=== PATIENT | female | born 2000 | race Caucasian/White ===

== ENCOUNTER 2023-06-27 09:42 | Outpatient (REF) | payer MEDICAID, SELFPAY ==
[2023-06-28 05:37] LABS: CT PCR NOT DETECTED (Not Detect.); NG PCR NOT DETECTED (Not Detect.)
[2023-06-28 10:20] LABS: BV Int Neg Control Negative (Negative); BV Int Pos Control Positive (Positive)
== END 2023-06-27 09:43 | disposition home or self-care (01) ==
LOC: HO.LNP 09:42
PROVIDERS: Visit Provider Advanced Practice Midwife
DX: Z01.419 Encounter for gynecological examination (general) (routine) without abnormal findings (principal); Z11.3 Encounter for screening for infections with a predominantly sexual mode of transmission; Z97.5 Presence of (intrauterine) contraceptive device
CPT/HCPCS: 0353U; 87480; 87510; 87660; 88142; 99385

== ENCOUNTER 2023-06-27 09:42 | Outpatient (AMB) | payer MEDICAID, SELFPAY ==
[2023-06-27 09:49] VITALS: BP 106/70; BMI 28.5
--- NOTE | 2023-06-27 09:49 | A.OFFVIS_ITS ---
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 She is 23 years old since February. She does believe that she has had several Pap smears in her lifetime. She used to get solar applications development engineer care from a doctor in [place] she has her 2nd Kyleena. She had this 1 inserted last year she said that none of the other methods were good for her because she knew she had a busy enough life that she would not remember and she chose this and she was very clear about why she wanted it. She is trying to practice safer sex with her partner but she has in a stable relationship and has no particular concerns she says she does have issues with her hands going numb and pains down her legs, she says she has been worked up by Rheumatology and Neurology and was told that the pain in her legs were going pains but she has not growing anymore and she still gets them she tries to eat well and cooks all her meals at home and is working on getting enough calcium and vitamin-D in her diet. Her only complaint that she mentioned at the end of the visit was that sometimes even when she is in the mood to have sex she feels dry and has a partn er that is very patient and they communicate. She is interested in getting full STD tests because she always does every year. 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 Despite her hands going numb and giving her difficulty and her pain running down her leg she works out and goes to the gym and does several different kinds of exercise and plays ultimate Frisbee. PFSH Surgical History Hx of wisdom tooth extraction Family History (Updated 06/27/23 @ 09:53 by NICOLE Abernathy) Family/Other Breast cancer Social History (Updated 06/27/23 @ 09:52 by NICOLE Abernathy) Alcohol intake: current Alcohol intake frequency: a few times a month Female Reproductive History Menstrual Age of Menarche: 17 Duration of menses: other control method: progestin IUCD Total pregnancies: 0 Physical Exam Vital Signs: Last Vital Signs BP 106/70 06/27/23 09:49 BMI result Body Mass Index 28.5 Const General: healthy appearing, comfortable, no acute distress, well developed and alert Nutritional Appearance: average body habitus Orientation/consciousness: patient oriented x3 Limitations: no limitations HEENT Head: Yes normocephalic Neck Neck: Yes normal visual inspection Chest Chest palpation & inspection: normal inspection of the chest Breast/axilla inspection: normal inspection of the breasts and normal inspection of the axillae Breast/axilla palpation: normal palpation of the breasts and normal palpation of the axillae Resp Effort & Inspection: normal respiratory effort GI Inspection: Yes normal to inspection, No Abdominal wall edema and No distended Palpation (GI): Soft to palpation and nontender General: Yes bladder normal to palpation External Female Exam: normal external appearance and normal appearance of the urethra Speculum Exam - Vagina: normal appearance of the vagina, normal palpation and normal vaginal discharge Speculum Exam - Cervix: normal appearance of the cervix, normal palpation and nontender Bimanual exam- vagina & uterus: normal bimanual exam, normal palpation, uterine size normal, bladder normal to palpation, consistency normal, normal palpation, uterine mobility normal, uterine shape normal, No Cervical tenderness present, non-tender and no cervical motion tenderness Bimanual Exam- Adnexa, other: normal adnexae, no masses, normal and No adnexal tenderness Neuro General: patient oriented x3 Assessment & Plan Assessment & Plan (1) Encounter for screening examination for sexually transmitted disease: Code(s): Z11.3 - Encounter for screening for infections with a predominantly sexual mode of transmission (2) Cervical cancer screening: Code(s): Z12.4 - Encounter for screening for malignant neoplasm of cervix (3) Presence of 13.5 mg levonorgestrel-releasing intrauterine device (IUD): Comment: Please note this is her 2nd it was replaced for her last year in [place]. We do not actually know the dosage of her particular Kyleena. Code(s): Z97.5 - Presence of (intrauterine) contraceptive device (4) Well woman exam with routine gynecological exam: Code(s): Z01.419 - Encounter for gynecological examination (general) (routine) without abnormal findings Plan -----Discussed in this visit the following: healthy balanced diet, regular and consistent exercise, getting recommended health screens, doing the best she can for her particular health concerns, kegel exercises, pap smear screening and followup recommendations, mammography screening and SBE, normal changes in cycles in her life stage--- . Discussed the screening policies in the [place] for cervical cancer in the last 20+ years which start Pap smears at age 21 and discussed the algorithm. I did her Pap smear today it is possible a deep dive in 2 her previous records may disclosed that she has had Pap smears done but I am following asccp recommendations today. Testing also done for STIs and offered for the blood work and she did accept those. She does not believe she is on our portal and I requested she be given information about that so she can get on the portal if she is not on the portal she can call for results in 2-3 days and we will send her a letter about the Pap smear I told her next Pap if this was normal would be in 3 years but that she still should return for solar applications development engineer annual exams and I did show her her cervix with the Kyleena string. I discussed normal bacterial scott and that just because Gardnerella or Supriya show up in the testing does not mean it needs to be treated but I recommend water-based lubricants for her dryness problem it may partially be related to the hormonal side effects of the Kyleena but this would be true for any hormonal based method of control. She was going to check her own wrist card to let me know the particular dosage of the Kyleena she has in but she did not have it with her. It is not of importance at this visit but she may bring the card or the dosage information to her next visit for information purposes. Labs ordered and RTC 1 year. Orders: Orders HIV Ab/Ag Today Z01.419 - Encounter for gynecological examination (general) (routine) without abnormal findings, Z11.3 - Encounter for screening for infections with a predominantly sexual mode of transmission, Z12.4 - Encounter for screening for malignant neoplasm of cervix, Z97.5 - Presence of (intrauterine) contraceptive device Hepatitis B Surface Antigen Today Z01.419 - Encounter for gynecological examination (general) (routine) without abnormal findings, Z11.3 - Encounter for screening for infections with a predominantly sexual mode of transmission, Z12.4 - Encounter for screening for malignant neoplasm of cervix, Z97.5 - Presence of (intrauterine) contraceptive device Hepatitis C Antibody Today Z419 - Encounter for gynecological examination (g eneral) (routine) without abnormal findings, Z11.3 - Encounter for screening for infections with a predominantly sexual mode of transmission, Z12.4 - Encounter for screening for malignant neoplasm of cervix, Z97.5 - Presence of (intrauterine) contraceptive device Syphilis Screen Today Z419 - Encounter for gynecological examination (general) (routine) without abnormal findings, Z11.3 - Encounter for screening for infections with a predominantly sexual mode of transmission, Z12.4 - Encounter for screening for malignant neoplasm of cervix, Z97.5 - Presence of (intrauterine) contraceptive device Coding Level of Care Code New Pt Prev Care [id number] Diagnoses Encounter for screening examination for sexually transmitted disease Z11.3 Cervical cancer screening Z12.4 Presence of 13.5 mg levonorgestrel-releasing intrauterine device (IUD) Z97.5 Well woman exam with routine gynecological exam Z
== END 2023-06-27 10:31 | disposition home or self-care (01) ==
PROVIDERS: Visit Provider Advanced Practice Midwife
DX: Z01.419 Encounter for gynecological examination (general) (routine) without abnormal findings (principal); Z97.5 Presence of (intrauterine) contraceptive device
CPT/HCPCS: 99385

== ENCOUNTER 2023-06-27 10:35 | Outpatient (REF) | payer MEDICAID, SELFPAY ==
[2023-06-28 03:47] LABS: Syphilis Screen Nonreactive (Nonreactive)
[2023-06-28 04:09] LABS: HBsAGNum1 0.41 S/CO (0.00-0.99); HIV AB/AG Nonreactive (Nonreactive); HIV Num 1 0.05 S/CO (0.00-0.99); Hepatitis B Surface Antigen Negative (Negative); ~HepC Num1 0.16 S/CO (0.00-0.79); ~Hepatitis C Antibody Nonreactive (Nonreactive)
== END 2023-06-27 10:36 | disposition home or self-care (01) ==
LOC: HO.HHCL 10:35
PROVIDERS: Visit Provider Advanced Practice Midwife
DX: Z11.4 Encounter for screening for human immunodeficiency virus [HIV] (principal); Z11.3 Encounter for screening for infections with a predominantly sexual mode of transmission; Z97.5 Presence of (intrauterine) contraceptive device
CPT/HCPCS: 36415; 86780; 86803; 87340; 87389